=== PATIENT | male | born 1955 | race Two or more races ===

== ENCOUNTER 2017-09-28 07:22 | Day surgery (SDC) | payer OTHER ==
[2017-09-28] MEDS ORDERED: FENTAnyl 50 MCG/ML VIAL (10:23)
[2017-09-28] MEDS ORDERED: MIDAZOLAM 1 MG/ML 2 ML INJ ×2 (10:23)
== END 2017-09-28 11:31 | disposition home or self-care (01) ==
LOC: GIL 07:22
DX: Z12.11 Encounter for screening for malignant neoplasm of colon (principal); D12.6 Benign neoplasm of colon, unspecified; C18.7 Malignant neoplasm of sigmoid colon; I10 Essential (primary) hypertension
CPT/HCPCS: 45380; 88305